=== PATIENT | male | born 1995 | race Caucasian/White ===

== ENCOUNTER 2017-07-09 19:57 | Emergency (ER) | payer OTHER ==
[~2017-07-09] VITALS: Ht 170.2 cm; Wt 104.3 kg
[2017-07-09] MEDS ORDERED: KETOROLAC 30 MG/ML VIAL IM ONE (21:30)
[2017-07-09] MEDS ORDERED: NS IV 1000 ML 1,000 ML IV SCH (21:41)
--- NOTE | 2017-07-09 21:41 | ED Headache ---
General Chief Complaint: Head/Cervical Problems Stated Complaint: HEAD PAIN/LOST CONSCIOUSNESS Nursing Triage Note: PT TO ED W/ C/O HEAD PAIN ONSET 07/06/17. DENIES INJURY. DOES REPORT SOME BLURRED VISION W/ COMPLAINT Nursing Sepsis Screen: No Definite Risk Source: patient, other Exam Limitations: no limitations (LUPILLO MUKHERJEE) History of Present Illness Date Seen by Provider: Jul 09, 2017 Time Seen by Provider: 21:20 Initial Comments Patient resists ER by private conveyance with chief complaint that since Tuesday, or days ago he was doing some warm up, weightlifting and started feeling pain in the back of his neck that radiated up over his occiput and has been intermittent coming back ever since then. Use Tylenol once and that helped when he is at work because the pain was so severe. It is not painful to palpation of his neck or limiting his range of motion of his neck. He says it does not hurt when he lifts weights again it just comes on its own when it does it's very severe and makes him off balance like his about the fall. He gets blurry vision when the pain gets very sharp. Worrisome however is that he does not always hurt and not everything makes it hurt and when is not hurting he is not having any pain in his neck when he pushes in or moves around. Things that make it worse include sex, lifting and working long hours. (LUPILLO MUKHERJEE) Allergies and Home Medications Allergies Coded Allergies: No Known Drug Allergies (Unverified , 07/09/17) Patient Home Medication List Home Medication List Reviewed: Yes (LUPILLO MUKHERJEE) Review of Systems Constitutional: No chills, No diaphoresis Eyes: Denies Blindness; Blurred Vision; Denies Drainage Ears, Nose, Mouth, Throat: denies ear pain, denies ear discharge, denies nose pain Respiratory: No short of breath, No wheezing Cardiovascular: No chest pain, No edema, No syncope Gastrointestinal: No abdominal pain, No constipation, No nausea, No vomiting Genitourinary: No discharge, No dysuria Musculoskeletal: No back pain; neck pain Skin: No pruritus, No rash Psychiatric/Neurological: Headache; Denies Numbness, Denies Paresthesia, Denies Seizure, Denies Tremors, Denies Weakness (LUPILLO MUKHERJEE) Past Zjzvzzq-Ynkogw-Ugnxby Hx Patient Social History Alcohol Use: Occasionally Uses Recreational Drug Use: No Smoking Status: Never a Smoker Recent Foreign Travel: No Contact w/Someone Who Travel: No Recent Infectious Disease Expo: No (LUPILLO MUKHERJEE) Past Medical History Surgeries: No Respiratory: No Cardiac: No Neurological: No Genitourinary: No Gastrointestinal: No Musculoskeletal: No Endocrine: No HEENT: No Cancer: No Psychosocial: No Integumentary: Yes Recent Skin Changes (LUPILLO MUKHERJEE) Physical Exam Vital Signs Vital Signs - First Documented 07/09/17 20:30 Temp 98.1 Pulse 74 Resp 18 B/P (MAP) 152/77 (102) Pulse Ox 100 O2 Delivery Room Air (NINFA CLARKE MD) Vital Signs Capillary Refill : Less Than 3 Seconds (LUPILLO MUKHERJEE) General Appearance: WD/WN, no apparent distress HEENT: PERRL/EOMI, normal ENT inspection, TMs normal, pharynx normal Neck: non-tender, full range of motion, supple, normal inspection Cardiovascular: normal peripheral pulses, regular rate, rhythm, no edema Respiratory: chest non-tender, lungs clear, normal breath sounds, no respiratory distress, no accessory muscle use Gastrointestinal: normal bowel sounds, non tender, soft Back: normal inspection, no vertebral tenderness Extremities: normal capillary refill Psychiatric: alert, oriented x 3 Crainal Nerves: normal hearing, normal speech, PERRL Coordination/Gait: normal finger to nose, normal gait, negative Romberg's sign , other (negative for dysdiadochokinesis; normal ynbw-vj-zkjx test) Motor/Sensory: no motor deficit, no sensory deficit Skin: normal color, warm/dry (LUPILLO MUKHERJEE) Progress/Results/Core Measures Results/Orders Lab Results Laboratory Tests Test 07/09/17 21:45 Range/Units White Blood Count 6.2 4.3-11.0 10^3/uL Red Blood Count 4.47 4.35-5.85 10^6/uL Hemoglobin 13.8 13.3-17.7 G/DL Hematocrit 39 L 40-54 % Mean Corpuscular Volume 86 80-99 FL Mean Corpuscular Hemoglobin 31 25-34 PG Mean Corpuscular Hemoglobin Concent 36 32-36 G/DL Red Cell Distribution Width 12.6 10.0-14.5 % Platelet Count 161 130-400 10^3/uL Mean Platelet Volume 9.7 7.4-10.4 FL Neutrophils (%) (Auto) 52 42-75 % Lymphocytes (%) (Auto) 37 12-44 % Monocytes (%) (Auto) 9 0-12 % Eosinophils (%) (Auto) 2 0-10 % Basophils (%) (Auto) 1 0-10 % Neutrophils # (Auto) 3.2 1.8-7.8 X 10^3 Lymphocytes # (Auto) 2.3 1.0-4.0 X 10^3 Monocytes # (Auto) 0.5 0.0-1.0 X 10^3 Eosinophils # (Auto) 0.1 0.0-0.3 10^3/uL Basophils # (Auto) 0.0 0.0-0.1 10^3/uL Sodium Level 140 135-145 MMOL/L Potassium Level 4.3 3.6-5.0 MMOL/L Chloride Level 107 98-107 MMOL/L Carbon Dioxide Level 22 21-32 MMOL/L Anion Gap 11 5-14 MMOL/L Blood Urea Nitrogen 16 7-18 MG/DL Creatinine 0.88 0.60-1.30 MG/DL Estimat Glomerular Filtration Rate > 60 BUN/Creatinine Ratio 18 Glucose Level 88 70-105 MG/DL Calcium Level 9.5 8.5-10.1 MG/DL Total Bilirubin 1.0 0.1-1.0 MG/DL Aspartate Amino Transf (AST/SGOT) 107 H 5-34 U/L Alanine Aminotransferase (ALT/SGPT) 91 H 0-55 U/L Alkaline Phosphatase 31 L 40-136 U/L Total Protein 7.7 6.4-8.2 GM/DL Albumin 4.6 H 3.2-4.5 GM/DL (NINFA CLARKE MD) Medications Given in ED Current Medications Medications Dose Ordered Sig/Samantha Route Start Time Stop Time Status Last Admin Dose Admin Iohexol 75 ml ONCE ONCE IV 07/09/17 22:45 07/09/17 23:16 DC 07/09/17 22:43 75 ML Ketorolac Tromethamine 30 mg ONCE ONCE IM 07/09/17 21:30 07/09/17 21:31 DC 07/09/17 21:30 30 MG Sodium Chloride 80 ml ONCE ONCE IV 07/09/17 22:45 07/09/17 23:16 DC 07/09/17 22:43 80 ML (NINFA CLARKE MD) Vital Signs/I&O 07/09/17 20:30 Temp 98.1 Pulse 74 Resp 18 B/P (MAP) 152/77 (102) Pulse Ox 100 O2 Delivery Room Air (NINFA CLARKE MD) Blood Pressure Mean: 102 Progress Progress Note #1: Time: 21:48 Progress Note Nagging pain that will go away after a weight lifting incident. Concern for vertebral artery stretched/dissection. Patient doesn't have any symptoms of Jemal-Danlos or marfanoid symptoms however he neither does he have musculoskeletal tenderness that would be expected if this was a sprain strain of his neck. He does not have any history or physical exam that suggest radiculopathy either. We will get a CT of his head to look for bleed or dural clot or tumor and a CT angiogram of the neck. We'll give him a liter of fluids and check some basic labs before doing this. Progress Note #2: Time: 23:20 Progress Note Discussed labs and the preliminary read of the CT scan with the patient and also discussed that we are waiting on the radiology report for the CT of the neck. The plan is that if the CTA of the neck and CT of the head are normal that we would treat this like a musculoskeletal syndrome and treated with topical creams, Tylenol, Motrin and rest with outpatient follow-up as necessary. This is been discussed with Dr. Clarke and he will be waiting for the radiology read of the CTA and CT head. (LUPILLO MUKHERJEE) Progress Note : Progress Note 0030: CT reports available now. No acute findings on the head and no dissection or significant stenosis or disease. There is lower affected the left internal jugular vein which can be evaluated as outpatient. Patient is doing better. Patient is not having any pain on the left side and is only having pain when he has on the right side. I did discuss with him about following up with a local physician and he will do that. He discussed the possibility of Dr. Joaquín Elmore so I will give him the information for him. Discharged home with return precautions. Patient verbalize understanding instructions and agreement with plan. (NINFA CLARKE MD) Diagnostic Imaging Diagonstic Imaging: CT Plain Films/CT/US/NM/MRI: c-spine (angio), head (c/o) Reviewed: Reviewed by Me (LUPILLO MUKHERJEE) Plain Films/CT/US/NM/MRI: c-spine (angio), head (c/o) Comments CT angiogram shows no significant stenotic licit disease. No definite dissection. Probable flow artifact in the left internal jugular vein. Clinical correlation with ultrasound may be considered to exclude possibility of jugular venous thrombus. CT head shows no evidence of acute intracranial abnormality. (NINFA CLARKE MD) Transfer of Care Time: 23:20 Care transferred to: Erasmo (LUPILLO MUKHERJEE) Departure Impression Primary Impression: Neck pain Disposition: HOME, SELF-CARE Condition: Improved Departure-Patient Inst. Decision time for Depature: 00:47 (NINFA CLARKE MD) Referrals: NO,LOCAL PHYSICIAN (PCP) Primary Care Physician JOAQUÍN ELMORE MD Patient Instructions: Neck Sprain (DC) Add. Discharge Instructions: All discharge instructions reviewed with patient and/or family. Voiced understanding. No lifting for the next week. He should follow up with her doctor listed order choice within the next week for recheck and further evaluation. You can consider ultrasound of the neck after discussion with her doctor. Return for worse pain, fever, vomiting, weakness, breathing problems or other concerns as needed. You may take Tylenol/acetaminophen 1000 mg every 8 hours as needed for pain. You may take ibuprofen 600 mg every 8 hours as needed for pain. Drink plenty of fluids. Copy Copies To 1: JOAQUÍN ELMORE MD, TITUS J Jul 09, 2017 21:41 NINFA CLARKE MD Jul 10, 2017 00:44
[2017-07-09 22:00] LABS: BASOPHILS % (AUTO) 1 % (0-10); EOSINOPHILS # (AUTO) 0.1 10^3/uL (0.0-0.3); EOSINOPHILS % (AUTO) 2 % (0-10); HEMATOCRIT 39 % (40-54); HEMOGLOBIN 13.8 G/DL (13.3-17.7); LYMPHOCYTES # (AUTO) 2.3 X 10^3 (1.0-4.0); LYMPHOCYTES % (AUTO) 37 % (12-44); MEAN CORPUSCULAR HEMOGLOBIN 31 PG (25-34); MEAN CORPUSCULAR HGB CONC 36 G/DL (32-36); MEAN CORPUSCULAR VOLUME 86 FL (80-99); MEAN PLATELET VOLUME 9.7 FL (7.4-10.4); MONOCYTES # (AUTO) 0.5 X 10^3 (0.0-1.0); MONOCYTES % (AUTO) 9 % (0-12); NEUTROPHILS # (AUTO) 3.2 X 10^3 (1.8-7.8); NEUTROPHILS % (AUTO) 52 % (42-75); PLATELET COUNT 161 10^3/uL (130-400); RED BLOOD COUNT 4.47 10^6/uL (4.35-5.85); RED CELL DISTRIBUTION WIDTH 12.6 % (10.0-14.5); WHITE BLOOD COUNT 6.2 10^3/uL (4.3-11.0)
[2017-07-09 22:11] LABS: ALANINE AMINOTRANSFERASE 91 U/L (0-55); ALBUMIN 4.6 GM/DL (3.2-4.5); ALKALINE PHOSPHATASE 31 U/L (40-136); BUN/CREATININE RATIO 18; CALCIUM 9.5 MG/DL (8.5-10.1); CARBON DIOXIDE 22 MMOL/L (21-32); CHLORIDE 107 MMOL/L (98-107); CREATININE SERUM 0.88 MG/DL (0.60-1.30); GFR ESTIMATED > 60; GLUCOSE 88 MG/DL (70-105); POTASSIUM 4.3 MMOL/L (3.6-5.0); SODIUM 140 MMOL/L (135-145); TOTAL PROTEIN 7.7 GM/DL (6.4-8.2)
[2017-07-09] MEDS ORDERED: IOHEXOL 350 MG/ML 100 ML (OMNIPAQUE 350) VIAL IV ONE (22:45)
[2017-07-09] MEDS ORDERED: NS 250 ML (IVPB) BAG IV ONE (22:45)
[2017-07-10 01:04] VITALS: BP 156/90
--- NOTE | 2017-07-10 06:35 | Diagnostic Imaging Report ---
PROCEDURE: CT head without contrast. TECHNIQUE: Multiple contiguous axial images were obtained through the brain without the use of intravenous contrast. INDICATION: Head pain COMPARISON: None available. FINDINGS: No intracranial hemorrhage. No intracranial mass, mass effect, midline shift, herniation, hydrocephalus, or extra-axial fluid collection. No definite CT evidence of an acute ischemic infarction. The orbits are unremarkable. The visualized paranasal sinuses are clear. The calvarium and extracalvarial soft tissues are unremarkable. IMPRESSION: Unremarkable examination without acute intracranial abnormality. Agree with preliminary interpretation. Dictated by: Dictated on workstation # [id number]
--- NOTE | 2017-07-10 06:43 | Diagnostic Imaging Report ---
Indication: Head pain Comparison: CT head from same day Technique: Multiple contiguous axial CT images are obtained through the neck after the administration of intravenous contrast dated July 09, 2017. Sagittal and coronal reformatted images were reviewed. Additional sagittal and coronal MIP reformatted images also reviewed. Findings: The minimally visualized intracranial contents are grossly unremarkable. The orbits are unremarkable. The muscles of mastication are unremarkable. Parapharyngeal fat is symmetric and well maintained. The visualized salivary glands are unremarkable. No significant adenopathy within the neck. The airway is patent. Piriform sinuses are symmetric. The thyroid gland is unremarkable. The visualized lung apices are clear. No apical pneumothorax. No acute osseous abnormality. Evaluation at the level of the thoracic inlet is slightly limited secondary to spray artifacts. A three-vessel aortic arch is present. The large arterial structures within the neck are unremarkable without evidence of occlusion, hemodynamically significant stenosis, aneurysm, pseudoaneurysm, or dissection. [place] is not included within the field of view. Hypodensity is identified within the central aspect of the left jugular vein. The right jugular vein is unremarkable. IMPRESSION: Central hypodensity within the left jugular vein. It is favored this simply relates to probable flow artifact, though thrombus cannot be excluded. Venous Doppler ultrasound of the jugular vein can help further evaluate. Otherwise, the large arterial structures within the neck are unremarkable. Agree with the preliminary interpretation. Dictated by: Dictated on workstation # [id number]
== END 2017-07-10 01:05 | disposition home or self-care (01) ==
LOC: ER 20:01
DX: M54.2 Cervicalgia (principal)
CPT/HCPCS: 36415; 70450; 70498; 80053; 85025; 96360; 96361; 96372; 96374